=== PATIENT | female | born 1965 | race Caucasian/White ===

== ENCOUNTER 2017-05-18 05:49 | Observation (INO) | payer OTHER ==
[~2017-05-18] VITALS: Ht 160 cm; Wt 115.0 kg
[2017-05-18] VITALS (17 sets, daily range): BP systolic 119–149; BP diastolic 57–96; PULSE 80–118; RESP 17–25; Ht 160 cm; Wt 115.0 kg
[2017-05-18] MEDS ORDERED: CEFAZOLIN 2 GM/50 ML (PMX) 50 ML IVPB SCH (06:00)
[2017-05-18] MEDS ORDERED: FENTAnyl 50 MCG/ML VIAL IV PRN ×2 (07:00)
[2017-05-18] MEDS ORDERED: HYDROmorphONE (0.2 MG/ML) 10ML SYG IV PRN ×3 (07:00)
[2017-05-18] MEDS ORDERED: morphine (1 MG/ML) 10ML SYRINGE IV PRN ×3 (07:00)
[2017-05-18] MEDS ORDERED: DIPHENHYDRAMINE 50 MG INJ IV PRN (07:00)
[2017-05-18] MEDS ORDERED: EPHEDrine SULFATE 50 MG/5 ML SYG IV PRN (07:00)
[2017-05-18] MEDS ORDERED: MIDAZOLAM 1 MG/ML 2 ML INJ IV PRN (07:00)
[2017-05-18] MEDS ORDERED: ATROPINE 1 MG/10 ML SYRINGE IV PRN (07:00)
[2017-05-18] MEDS ORDERED: OXYCODONE/ACETAMINOPHEN (5/325) TAB PO PRN ×2 (07:00)
[2017-05-18] MEDS ORDERED: MEPERIDINE 25 MG INJ IV PRN (07:00)
[2017-05-18] MEDS ORDERED: hydrALAzine 20 MG INJ IV PRN ×2 (07:00→15:00)
[2017-05-18] MEDS ORDERED: LABETALOL HCL 20MG INJ IV PRN (07:00)
[2017-05-18] MEDS ORDERED: ONDANSETRON 4 MG INJ IV PRN ×2 (07:00→13:00)
[2017-05-18] MEDS ORDERED: TIOT18CA INHALATION (09:23)
[2017-05-18] MEDS ORDERED: LOSA100T7 PO ×2 (09:23→09:25)
[2017-05-18] MEDS ORDERED: AMLO5TAB4 PO ×2 (09:25→09:26)
[2017-05-18] MEDS ORDERED: INSU100C SQ (09:26)
[2017-05-18] MEDS ORDERED: IBUP-1542 PO (09:26)
[2017-05-18] MEDS ORDERED: INSU100I33 SC (09:27)
[2017-05-18] MEDS ORDERED: ATOR10TA65 PO (09:27)
[2017-05-18] MEDS ORDERED: CETI10TA71 PO (09:28)
[2017-05-18] MEDS ORDERED: ONDA-43 PO (09:28)
[2017-05-18] MEDS ORDERED: LORA10TA3 PO (09:29)
[2017-05-18] MEDS ORDERED: MTF1000T PO (09:29)
[2017-05-18] MEDS ORDERED: GLYCOPYRROLATE 0.4 MG INJ ONE (09:52)
[2017-05-18] MEDS ORDERED: PROPOFOL 20 ML ONE (09:52)
[2017-05-18] MEDS ORDERED: MIDAZOLAM 1 MG/ML 2 ML INJ ONE (09:52)
[2017-05-18] MEDS ORDERED: ROCURONIUM 50 MG INJ ONE (09:52)
[2017-05-18] MEDS ORDERED: NEOSTIGMINE 3 MG/3 ML SYRINGE ONE (09:52)
[2017-05-18] MEDS ORDERED: LIDOCAINE 2% (SDV) 5 ML INJ ONE (09:52)
[2017-05-18] MEDS ORDERED: DEXAMETHASONE 4 MG/ML 1 ML INJ ONE (09:53)
[2017-05-18] MEDS ORDERED: FENTAnyl 50 MCG/ML VIAL ONE (09:53)
[2017-05-18] MEDS ORDERED: ONDANSETRON 4 MG INJ ONE (09:53)
[2017-05-18 10:00] LABS: BASOPHIL # 0.1 10^3/ul (0.0-0.1); BASOPHILS % 0.5 % (0.0-2.0); EOSINOPHILS # 0.1 10^3/ul (0.0-0.5); EOSINOPHILS % 0.5 % (0.0-7.0); HEMATOCRIT 46.6 % (37.0-47.0); HEMOGLOBIN 15.4 g/dl (12.0-16.0); LYMPHOCYTES # 3.2 10^3/ul (0.8-2.9); LYMPHOCYTES % 28.9 % (15.0-51.0); MEAN CORPUSCULAR HEMOGLOBIN 28.7 pg (29.0-33.0); MEAN CORPUSCULAR VOLUME 86.9 fl (82.0-101.0); MEAN PLATELET VOLUME 10.7 fl (7.4-10.4); MONOCYTE # 0.4 10^3/ul (0.3-0.9); NEUTROPHIL # 7.3 10^3/ul (1.6-7.5); NEUTROPHILS % 65.8 % (39.0-77.0); PLATELET COUNT 272 10^3/UL (140-415); RED BLOOD COUNT 5.36 10^6/ul (4.20-5.40); RED CELL DISTRIBUTION WIDTH 13.2 % (11.5-14.5)
[2017-05-18] MEDS ORDERED: METHYLENE BLUE 1% 10 ML INJ ONE (10:33)
[2017-05-18] MEDS ORDERED: SUGAMMADEX SODIUM 200 MG/2 ML VIAL IV ONE (10:40)
[2017-05-18] MEDS ORDERED: SUCCINYLCHOLINE CHLORIDE 100 MG/5 ML SYG IV ONE (10:40)
[2017-05-18] MEDS ORDERED: ISOSULFAN BLUE 1% 5 ML INJ SC ONE (10:56)
[2017-05-18] MEDS ORDERED: EPHEDrine SULFATE 50 MG/5 ML SYG ONE (11:32)
[2017-05-18] MEDS ORDERED: D5W-0.45 NACL + KCL 20 MEQ 1,000 ML IV SCH (12:49)
--- NOTE | 2017-05-18 12:49 | SIPON ---
Date/Time of Note Date/Time of Note DATE: 05/18/17 TIME: 12:47 Operative Report Preoperative Diagnosis Invasive cancer left breast Postoperative Diagnosis Same Operation/Procedure Performed Left needle directed partial mastectomy with axillary dissection utilizing sentinel lymph node technique Surgeon see signature line licensed occupational therapy assistant None Anesthesia: general Estimated blood loss: 10 - 50 ml's Transfusion Required none Specimen Left breast specimen and sentinel lymph node with additional axillary tissue Grafts/Implants none Complications none JONAS BROOKS MD May 18, 2017 12:49
[2017-05-18] MEDS ORDERED: morphine 2 MG INJ IV PRN (13:00)
[2017-05-18] MEDS ORDERED: ACETAMINOPHEN 1000MG/100ML IV 100 ML IVPB PRN (13:00)
[2017-05-18] MEDS ORDERED: LABETALOL HCL 20MG INJ ONE (13:02)
[2017-05-18] MEDS ORDERED: GLUCAGON 1 MG INJ IM PRN (15:00)
[2017-05-18] MEDS ORDERED: DEXTROSE 50% 50 ML SYRINGE IV PRN ×2 (15:00)
[2017-05-18] MEDS ORDERED: GLUCOSE GEL 15 GRAM TUBE PO PRN ×2 (15:00)
[2017-05-18] MEDS ORDERED: GLUCOSE GEL 15 GRAM TUBE BUCCAL PRN (15:00)
[2017-05-18] MEDS: SOD CHLORIDE 0.9% 1,000 ML IV SCH ×2 (16:40→19:20)
[2017-05-18] MEDS: metFORMIN 500 MG TAB PO SCH (18:10)
[2017-05-18] MEDS: INSULIN ASPART [NOVOLOG] 3 ML PEN SC SCH ×2 (18:22→21:01)
[2017-05-18] MEDS ORDERED: INSULIN GLARGINE [LANtus] 3 ML PEN SC SCH (21:00)
[2017-05-18] MEDS ORDERED: ATORVASTATIN 10 MG TAB PO SCH (21:00)
[2017-05-19 02:00] VITALS: BP 119/60; RESP 18
[2017-05-19] MEDS ORDERED: ACCU-CHEK XX SCH ×2 (02:00)
[2017-05-19 05:05] VITALS: BP 133/65; PULSE 90; RESP 19
[2017-05-19 05:37] LABS: BASOPHILS % 0.1 % (0.0-2.0); HEMOGLOBIN 14.1 g/dl (12.0-16.0); LYMPHOCYTES % 11.2 % (15.0-51.0); MEAN CORPUSCULAR HEMOGLOBIN 29.3 pg (29.0-33.0); MEAN CORPUSCULAR HGB CONC 32.8 g/dl (32.0-37.0); MEAN CORPUSCULAR VOLUME 89.4 fl (82.0-101.0); MEAN PLATELET VOLUME 11.7 fl (7.4-10.4); MONOCYTE # 0.7 10^3/ul (0.3-0.9); MONOCYTES % 3.8 % (0.0-11.0); NEUTROPHIL # 14.7 10^3/ul (1.6-7.5); NEUTROPHILS % 84.3 % (39.0-77.0); PLATELET COUNT 218 10^3/UL (140-415); RED BLOOD COUNT 4.81 10^6/ul (4.20-5.40); RED CELL DISTRIBUTION WIDTH 13.3 % (11.5-14.5); WHITE BLOOD COUNT 17.4 10^3/ul (4.8-10.8)
[2017-05-19 05:53] LABS: CALCIUM 8.9 mg/dl (8.4-10.2); CREATININE 0.75 mg/dl (0.44-1.00); POTASSIUM 4.4 mmol/L (3.5-5.1)
[2017-05-19 07:52] VITALS: BP 111/57; RESP 20
[2017-05-19] MEDS: metFORMIN 500 MG TAB PO SCH (08:39)
[2017-05-19] MEDS: INSULIN ASPART [NOVOLOG] 3 ML PEN SC SCH ×2 (08:49→12:42)
--- NOTE | 2017-05-19 08:54 | OPR ---
DATE OF OPERATION: 05/18/2017 PREOPERATIVE DIAGNOSIS: Invasive cancer, left breast. POSTOPERATIVE DIAGNOSIS: Invasive cancer, left breast. OPERATION PERFORMED: Needle-directed left partial mastectomy with axillary dissection utilizing sen tinel lymph node technique. ANESTHESIA: General. ANESTHESIOLOGIST: MD Blanche. SURGEON: Dr. Siegel. SURGICAL SUPERVISOR: None. INDICATIONS FOR PROCEDURE: The patient is a 51-year-old female who underwent screening mammography and was found to have a suspicious lesion in her left breast. Subsequent biopsy confirmed invasive cancer. She was counseled as to the benefit of breast conservation surgery with needle-directed par tial mastectomy and axillary dissection utilizing sentinel lymph node technique. She consented and was scheduled for surgery. DESCRIPTION OF PROCEDURE: On the morning of surgery, the patient was brought to [facility] where she underwent localization of the lesion performed by attending radi ologist, . Subsequently, she was brought to the operating theater, placed under general ane sthesia. The left breast and axillary region were prepped and draped in usual sterile fashion. Rupert roximately 4 to 5 mL of 1% Lymphazurin blue dye was then injected blanka-tumorally. The breast was ge ntly massaged for approximately 12 minutes. At this point, a 3 to 4 cm incision was made in the lef t axillary hairline. Subcutaneous tissue was dissected with cautery down through the clavipectoral fascia. The fascia was incised. A relatively large lymph node with associated dye-stained lymphati c was identified. This lymph node and several other lymph nodes in the general area were resected a nd sent for permanent pathologic analysis. The wound was then irrigated. Minimal bleeding was cont rolled with cautery. A #10 Irish Tylor-Espinoza drain was then brought through the left mid axillar y line, cut to size and laid within the axilla. It was secured in place with 2-0 nylon suture in th e standard fashion. Incision was then closed with a 4-0 Vicryl suture in subcuticular fashion. Attention was then directed to performing partial mastectomy. A curvilinear incision was then made in the region of the previously placed localization wire which was in the upper outer quadrant. Sub cutaneous tissue was dissected with cautery. The skin edges were elevated with skin hooks and wide circumferential dissection of the tissue associated with the wire took place, taking great care to e nsure adequate margins. The specimen was transected, oriented, and sent for gross pathologic analys is. The wound was irrigated. Minimal bleeding was controlled with cautery. The skin was then reap proximated with 4-0 Vicryl suture in subcuticular fashion and Dermabond was applied to both incision s. The patient tolerated procedure well. Total blood loss was approximately 50 mL. There were no complications, and the patient was transported in stable condition to the recovery room where circum ferential compression dressing was applied. Dictated By: JONAS ROY/JING Conf#: [id number] DID#: [id number]
[2017-05-19] MEDS ORDERED: LORATADINE 10 MG TAB PO SCH (09:00)
[2017-05-19] MEDS ORDERED: LOSARTAN 50 MG TAB PO SCH (09:00)
[2017-05-19] MEDS ORDERED: AMLODIPINE 5 MG TAB PO SCH (09:00)
[2017-05-19] MEDS ORDERED: [UNRECOGNIZED DRUG - REMARK] PO SCH (09:00)
[2017-05-19] MEDS ORDERED: TIOTROPIUM 18 MCG CAPSULE INHA DEV INH SCH (09:00)
--- NOTE | 2017-05-19 12:27 | HP ---
DATE OF ADMISSION: 05/18/2017 HISTORY OF PRESENT ILLNESS: The patient is a 51-year-old female with past medical history significa nt for hypertension, insulin-dependent diabetes mellitus, COPD, depression, arthritis. The patient was diagnosed with invasive cancer of the left breast and was evaluated in surgical consultation by Dr. Siegel. The patient was brought to the hospital today and underwent left needle-directed partial mastectomy with axillary dissection utilizing sentinel lymph node technique. Postoperatively, the patient complains of significant pain and the patient will be admitted for further evaluation and ma nagement. PAST MEDICAL HISTORY: Per HPI. PAST SURGICAL HISTORY: Patient had status post tonsillectomy and ear surgery in patient's childhood . FAMILY HISTORY: Positive for cancer in patient's mother at the age of 60, details not available. SOCIAL HISTORY: Patient lives at home with her . The patient smokes at least 1 pack of ciga rettes per day and smoked for many years. The patient denies any alcohol. Denies any illicit drug use. ALLERGIES: THE PATIENT IS ALLERGIC TO ERYTHROMYCIN ANTIBIOTICS. HOME MEDICATIONS: Includes: 1. Norvasc. 2. Atorvastatin. 3. Ibuprofen. 4. 40 units of subQ at bedtime. 5. Loratadine. 6. Cozaar 7. Metformin. 8. Zofran. 9. Spiriva. 10. Humalog. 11. Lispro 4 units subq b.i.d. 12. Cetirizine. REVIEW OF SYSTEMS: A 12-point review of systems is negative unless mentioned in the HPI. PHYSICAL ASSESSMENT: GENERAL: Well-developed, obese female in no acute distress. VITAL SIGNS: Temperature is 98.2, pulse is 103, blood pressure 137/96, respiratory rate 21, oxygen saturation 92% on 2 liters nasal cannula. HEENT: Head is atraumatic, normocephalic. Pupils equal, round, reactive to light and accommodation . Oral mucosa is pink and moist. NECK: Supple, no cervical lymphadenopathy, no thyromegaly. CHEST: Lungs clear bilaterally. There is no rhonchi, wheezes or rales noted. CARDIOVASCULAR: Normal S1, S2. No murmurs, gallops, clicks, rubs noted. Patient has a chest surgi renée dressing with a dry, clean and intact. ABDOMEN: Protuberant, soft, nondistended, nontender. Bowel sounds present. EXTREMITIES: No edema, clubbing, cyanosis. Pulses equal bilaterally 2+. SKIN: There is no rash, petechiae noted. NEUROLOGIC: Patient is awake, alert and oriented x4. No focal deficits noted. ASSESSMENT AND PLAN: 1. Invasive cancer of the left breast status post left needle-directed partial mastectomy with axil lachelle dissection. Continue Tylenol and morphine p.r.n. for pain, Zofran p.r.n. for nausea. 2. Continue postoperative antibiotics. 3. Hypertension. We will continue patient's home antihypertensive medication, hydralazine p.r.n. f or systolic blood pressure above 170. 4. Insulin-dependent diabetes mellitus. We will continue patient's home regimen and will continue to monitor blood sugar q.a.c. and at bedtime with NovoLog sliding scale coverage. 5. Tobacco dependence. Tobacco cessation strongly advised. 6. Possible chronic obstructive pulmonary disease. Will continue breathing treatment p.r.n. for sh ortness of breath. 7. Continue Spiriva. RECOMMENDATIONS: We will continue sequential compression device for deep venous thrombosis prophyla xis. Further recommendations based on clinical course. Plan of care was discussed with Dr. Wolfgang esposito Dictated By: MOUNIKA GRANT ASSURANCE AUDITOR for ROSAURA MCPHERSON MD SR/NTS Conf#: [id number] DID#: [id number]
[2017-05-19 14:15] LABS: BASOPHILS % 0.2 % (0.0-2.0); EOSINOPHILS % 0.2 % (0.0-7.0); HEMATOCRIT 43.6 % (37.0-47.0); HEMOGLOBIN 14.5 g/dl (12.0-16.0); LYMPHOCYTES # 3.6 10^3/ul (0.8-2.9); LYMPHOCYTES % 22.7 % (15.0-51.0); MEAN CORPUSCULAR HEMOGLOBIN 29.8 pg (29.0-33.0); MEAN CORPUSCULAR HGB CONC 33.3 g/dl (32.0-37.0); MEAN CORPUSCULAR VOLUME 89.7 fl (82.0-101.0); MEAN PLATELET VOLUME 11.2 fl (7.4-10.4); MONOCYTE # 0.7 10^3/ul (0.3-0.9); MONOCYTES % 4.5 % (0.0-11.0); NEUTROPHIL # 11.4 10^3/ul (1.6-7.5); PLATELET COUNT 205 10^3/UL (140-415); RED BLOOD COUNT 4.86 10^6/ul (4.20-5.40); RED CELL DISTRIBUTION WIDTH 13.2 % (11.5-14.5); WHITE BLOOD COUNT 15.8 10^3/ul (4.8-10.8)
[2017-05-19 14:18] LABS: POSITIVE DIFF @See below
--- NOTE | 2017-05-19 14:33 | PDOCDIS ---
Discharge Instructions CONDITION Patient Condition: Stable HOME CARE INSTRUCTIONS: Diet Instructions: Reduced Calorie ACTIVITY: Activity Restrictions: Slowly Increase Activity Rest between Activity Avoid heavy lifting Avoid Heavy Housework Bathing Restrictions: Tub Bath FOLLOW UP/APPOINTMENTS Follow-up Plan FU with PMD X 1 week FU wi surgery as recommended Call 911 or go to the nearest hospital if symptoms get worse- patient verbalized understanding dc indurations Plan of care dw dr Phelan/staff. MINE ROTHMAN May 19, 2017 14:33
[2017-05-19] MEDS ORDERED: ACET1TAB40 PO (14:38)
[2017-05-19] MEDS ORDERED: FAMO20TA18 PO (14:38)
[2017-05-19] MEDS ORDERED: DOCU-144 PO (14:38)
--- NOTE | 2017-05-19 14:41 | DS ---
Date/Time of Note Date/Time of Note DATE: 05/19/17 TIME: 14:39 Discharge Summary Admission/Discharge Info Admit Date/Time May 18, 2017 at 12:52 Discharge Date/Time Discharge Diagnosis 1. Invasive cancer of the left breast 2. Status post left needle-directed partial mastectomy with axillary dissection. 3. Hypertension. 4. Insulin-dependent diabetes mellitus. 5. Tobacco dependence. Tobacco cessation strongly advised. 6. Possible chronic obstructive pulmonary disease. Patient Condition: Stable Hospital Course This is a 51-year-old female with past medical history of hypertension, insulin-dependent diabetes mellitus, COPD, depression, arthritis. The patient was diagnosed with invasive cancer of the left breast and underwent left needle- directed partial mastectomy with axillary dissection utilizing sentinel lymph node technique. Postoperatively, the patient experienced moderate pain and was admitted for further evaluation and management under Dr Phelan. Post op pain was controlled, pt was stable, cleared by surgery to discharge home. Dw Dr Phelan Home Meds Active Scripts Famotidine* (Famotidine*) 20 Mg Tablet, 20 MG PO DAILY, #20 TAB Prov:MINE ROTHMAN 05/19/17 Docusate Sodium* (Colace*) 100 Mg Capsule, 100 MG PO DAILY, #20 CAP Prov:MINE ROTHMAN 05/19/17 Acetaminophen with Codeine (Acetaminophen-Cod #3 Tablet) 1 Each Tablet, 1 TAB PO Q6H, #14 TAB Prov:MINE ROTHMAN 05/19/17 Reported Medications Metformin* (Glucophage*) 1,000 Mg Tablet, 1000 MG PO BID, #60 TAB 05/18/17 Loratadine* (Loratadine*) 10 Mg Tablet, 10 MG PO DAILY, #30 TAB 05/18/17 Ondansetron Hcl* (Zofran*) 4 Mg Tab, 4 MG PO Q6H Y for NAUSEA AND OR VOMITING, TAB 05/18/17 Cetirizine Hcl (Allergy) 10 Mg Tablet, 10 MG PO DAILY, TAB 05/18/17 Atorvastatin Calcium (Atorvastatin Calcium) 10 Mg Tablet, 10 MG PO QHS, #30 TAB 05/18/17 Insulin Glargine,Hum.rec.anlog (Basaglar Kwikpen U-100) 100 Unit/1 Ml Insuln.pen , 40 UNIT SC QHS 05/18/17 Amlodipine Besylate* (Norvasc*) 5 Mg Tablet, 5 MG PO DAILY, TAB 05/18/17 Ibuprofen* (Ibuprofen*) 600 Mg Tablet, 600 MG PO Q8 Y for PAIN, TAB 05/18/17 Insulin Lispro (Humalog) 100 Unit/1 Ml Cartridge, 4 UNIT SQ BID 05/18/17 Losartan Potassium* (Losartan Potassium*) 100 Mg Tablet, 100 MG PO DAILY, TAB 05/18/17 Tiotropium [place]* (Spiriva*) 18 Mcg Cap.w.dev, 1 CAP INHALATION DAILY, #30 CAP 05/18/17 Follow-up Plan FU with PMD X 1 week FU [facility] surgery as recommended Call 911 or go to the nearest hospital if symptoms get worse- patient verbalized understanding dc indurations Plan of care dw dr Phelan/staff. Primary Care Provider Okd per dr Ramsay to go home. Time spent on discharge: < 30 minutes Pending Labs Laboratory Tests Test 05/18/17 17:50 05/18/17 20:58 05/18/17 22:02 05/19/17 02:41 Bedside Glucose 227mg/dL (70-220) 218mg/dL (70-220) 205mg/dL (70-220) 131mg/dL (70-220) Test 05/19/17 04:23 05/19/17 08:35 05/19/17 12:37 05/19/17 14:06 White Blood Count 17.410^3/ul (4.8-10.8) 15.810^3/ul (4.8-10.8) Red Blood Count 4.8110^6/ul (4.20-5.40) 4.8610^6/ul (4.20-5.40) Hemoglobin 14.1g/dl (12.0-16.0) 14.5g/dl (12.0-16.0) Hematocrit 43.0% (37.0-47.0) 43.6% (37.0-47.0) Mean Corpuscular Volume 89.4fl (82.0-101.0) 89.7fl (82.0-101.0) Mean Corpuscular Hemoglobin 29.3pg (29.0-33.0) 29.8pg (29.0-33.0) Mean Corpuscular Hemoglobin Concent 32.8g/dl (32.0-37.0) 33.3g/dl (32.0-37.0) Red Cell Distribution Width 13.3% (11.5-14.5) 13.2% (11.5-14.5) Platelet Count 43515^3/UL (140-415) 52551^3/UL (140-415) Mean Platelet Volume 11.7fl (7.4-10.4) 11.2fl (7.4-10.4) Neutrophils % 84.3% (39.0-77.0) 72.0% (39.0-77.0) Lymphocytes % 11.2% (15.0-51.0) 22.7% (15.0-51.0) Monocytes % 3.8% (0.0-11.0) 4.5% (0.0-11.0) Eosinophils % 0.0% (0.0-7.0) 0.2% (0.0-7.0) Basophils % 0.1% (0.0-2.0) 0.2% (0.0-2.0) Nucleated Red Blood Cells % 0.0/100WBC (0.0-0.0) 0.0/100WBC (0.0-0.0) Neutrophils # 14.710^3/ul (1.6-7.5) 11.410^3/ul (1.6-7.5) Lymphocytes # 2.010^3/ul (0.8-2.9) 3.610^3/ul (0.8-2.9) Monocytes # 0.710^3/ul (0.3-0.9) 0.710^3/ul (0.3-0.9) Eosinophils # 0.010^3/ul (0.0-0.5) 0.010^3/ul (0.0-0.5) Basophils # 0.010^3/ul (0.0-0.1) 0.010^3/ul (0.0-0.1) Nucleated Red Blood Cells # 0.010^3/ul (0.0-0.0) 0.010^3/ul (0.0-0.0) Sodium Level 141mmol/L (135-144) Potassium Level 4.4mmol/L (3.5-5.1) Chloride Level 105mmol/L (97-110) Carbon Dioxide Level 25mmol/L (21-31) Anion Gap 15 (8-16) Blood Urea Nitrogen 21mg/dl (7-20) Creatinine 0.75mg/dl (0.44-1.00) Glucose Level 137mg/dl (70-220) Hemoglobin A1c 6.5% (0-5.9) Calcium Level 8.9mg/dl (8.4-10.2) Bedside Glucose 148mg/dL (70-220) 112mg/dL (70-220) MINE ROTHMAN May 19, 2017 14:41
--- NOTE | 2017-05-21 06:45 | PN ---
DATE: 05/19/2017 Patient has leukocytosis and status post left partial mastectomy with axillary dissection. SUBJECTIVE: No complaint. Patient has been coughing to some extent, but she says that is usual for her because she is a chronic smoker. No fever. No nausea, no vomiting. Moves her left arm easily. OBJECTIVE: GENERAL: Awake, alert, oriented x3. VITAL SIGNS: Temperature 98.2, heart rate 90, respirations 20, blood pressure 111/67, saturation 94% on room air. LABORATORY DATA: WBC was 17,400 today morning, dropped to 15,800. Differential was 84% neutrophils today, and now is 72%. Hemoglobin 14.5, hematocrit 43.6. Chemistry is normal. Blood sugar 148, and also 112. Hemoglobin A1c 6.5. Two Tylor-Espinoza drains in place. One has drained last night 5 mL, the other one 10 mL of serosanguineous. Dressing is intact. ASSESSMENT AND PLAN: The patient is a 51-year-old chronic smoker with left invasive cancer, needle-directed left partial mastectomy and axillary dissection was done yesterday. The patient is fine. No fever. Leukocyte count is elevated up. The patient is currently a smoker. Otherwise, there is no problem, wound is clean, dressing is intact. Tylor-Espinoza is serosanguineous. Patient is discharged today to go home. Followup by Dr. Brooks. Patient to call Dr. Brooks' office on Sunday, make an appointment for followup. Dictated By: KANDIS GARCÍA MD PS/NTS Conf#: [id number] DID#: [id number] CC: JONAS BROOKS MD;*EndCC* MTDD
== END 2017-05-19 15:05 | disposition home or self-care (01) ==
LOC: SDS 05:49 → MS1 12:52 → SDS 12:52 → MS1 14:07
PROVIDERS: ADMIT Surgery Surgical Oncology; ATTEND Surgery Surgical Oncology
DX: C50.412 Malignant neoplasm of upper-outer quadrant of left female breast (principal); I10 Essential (primary) hypertension; E11.9 Type 2 diabetes mellitus without complications; Z79.4 Long term (current) use of insulin; E66.01 Morbid (severe) obesity due to excess calories; Z68.41 Body mass index [BMI] 40.0-44.9, adult; M19.90 Unspecified osteoarthritis, unspecified site; F32.9 Major depressive disorder, single episode, unspecified; F17.210 Nicotine dependence, cigarettes, uncomplicated; J45.909 Unspecified asthma, uncomplicated
CPT/HCPCS: 19301; 38525; 38900; 80048; 82962; 83036; 85025; 88307; J1100; J1815; J2250; J2405; J3010; J3480; J7030; Z7500; Z7512; Z7610; G0378; J2270; J2710; Q9968

== ENCOUNTER 2017-06-29 07:21 | Day surgery (SDC) | payer OTHER ==
[2017-06-28 14:25] VITALS: BMI 46.9
[2017-06-29] VITALS (10 sets, daily range): BP systolic 106–138; BP diastolic 50–106; PULSE 104–122; RESP 18–22; Ht 160 cm; Wt 117.4 kg
[~2017-06-29] VITALS: Ht 160 cm; Wt 117.4 kg
[~2017-06-29 07:21] MED LIST: ACET1TAB40 PO; AMLO5TAB4 PO; ATOR10TA65 PO; CETI10TA71 PO; DOCU-144 PO; FAMO20TA18 PO; IBUP-1542 PO; INSU100C SQ; INSU100I33 SC; LORA10TA3 PO; LOSA100T7 PO; MTF1000T PO; ONDA-43 PO; TIOT18CA INHALATION
[2017-06-29 09:13] LABS: BASOPHIL # 0.1 10^3/ul (0.0-0.1); BASOPHILS % 0.6 % (0.0-2.0); EOSINOPHILS # 0.1 10^3/ul (0.0-0.5); EOSINOPHILS % 0.6 % (0.0-7.0); HEMATOCRIT 43.3 % (37.0-47.0); HEMOGLOBIN 14.4 g/dl (12.0-16.0); LYMPHOCYTES # 2.4 10^3/ul (0.8-2.9); LYMPHOCYTES % 29.5 % (15.0-51.0); MEAN CORPUSCULAR HEMOGLOBIN 29.1 pg (29.0-33.0); MEAN CORPUSCULAR HGB CONC 33.3 g/dl (32.0-37.0); MEAN CORPUSCULAR VOLUME 87.7 fl (82.0-101.0); MEAN PLATELET VOLUME 11.4 fl (7.4-10.4); MONOCYTE # 0.4 10^3/ul (0.3-0.9); MONOCYTES % 5.2 % (0.0-11.0); NEUTROPHIL # 5.3 10^3/ul (1.6-7.5); NEUTROPHILS % 63.9 % (39.0-77.0); PLATELET COUNT 208 10^3/UL (140-415); RED BLOOD COUNT 4.94 10^6/ul (4.20-5.40); RED CELL DISTRIBUTION WIDTH 12.5 % (11.5-14.5); WHITE BLOOD COUNT 8.2 10^3/ul (4.8-10.8)
[2017-06-29] MEDS ORDERED: PROPOFOL 20 ML ONE (09:18)
[2017-06-29] MEDS ORDERED: METOCLOPRAMIDE 10 MG INJ ONE (09:18)
[2017-06-29] MEDS ORDERED: MIDAZOLAM 1 MG/ML 2 ML INJ ONE (09:18)
[2017-06-29] MEDS ORDERED: LIDOCAINE 2% (SDV) 5 ML INJ ONE (09:18)
[2017-06-29] MEDS ORDERED: FENTAnyl 50 MCG/ML VIAL ONE (09:18)
[2017-06-29] MEDS ORDERED: ONDANSETRON 4 MG INJ ONE (09:18)
[2017-06-29] MEDS ORDERED: GLYCOPYRROLATE 0.4 MG INJ ONE (09:18)
[2017-06-29] MEDS ORDERED: ROCURONIUM 50 MG INJ ONE (09:18)
[2017-06-29] MEDS ORDERED: FAMOTIDINE 20 MG INJ ONE (09:19)
[2017-06-29] MEDS ORDERED: DEXAMETHASONE 4 MG/ML 1 ML INJ ONE (09:19)
--- NOTE | 2017-06-29 09:26 | RADRPT ---
PROCEDURE: XR Chest. CLINICAL INDICATION: Preoperative TECHNIQUE: Single frontal view of the chest was obtained COMPARISON: None FINDINGS: The heart and mediastinum are within normal limits. There is a 6 mm right upper lobe calcified granuloma. There is no focal infiltrate. There is no pleural effusion or pneumothorax. RPTAT: AA IMPRESSION: No acute disease. 6 mm right upper lobe calcified granuloma. .Gee Medina MD, MD Date Time Electronically viewed and signed by .Gee Medina MD, MD on 06/29/2017 09:26 .S/
[2017-06-29 09:38] LABS: CALCIUM 9.3 mg/dl (8.4-10.2); CREATININE 0.83 mg/dl (0.44-1.00)
[2017-06-29 09:54] LABS: INR 0.95; PROTIME 12.7 Sec (12.2-14.2)
[2017-06-29 09:55] LABS: PARTIAL THROMBOPLASTIN TIME 27.9 Sec (25.0-35.0)
[2017-06-29] MEDS ORDERED: CEFAZOLIN 1 GM INJ ONE (09:59)
[2017-06-29] MEDS ORDERED: EPHEDrine SULFATE 50 MG/5 ML SYG ONE (09:59)
[2017-06-29] MEDS ORDERED: PHENYLephrine (100 MCG/ML) 5ML SYG ONE (10:00)
[2017-06-29] MEDS ORDERED: METOCLOPRAMIDE 10 MG INJ IV PRN (10:00)
[2017-06-29] MEDS ORDERED: ONDANSETRON 4 MG INJ IV PRN (10:00)
[2017-06-29] MEDS ORDERED: DIPHENHYDRAMINE 50 MG INJ IV PRN (10:00)
[2017-06-29] MEDS ORDERED: OXYCODONE/ACETAMINOPHEN (5/325) TAB PO PRN ×2 (10:00)
[2017-06-29] MEDS ORDERED: LABETALOL HCL 20MG INJ IV PRN (10:00)
[2017-06-29] MEDS ORDERED: MEPERIDINE 25 MG INJ IV PRN (10:00)
[2017-06-29] MEDS ORDERED: ALBUTEROL 0.083% (NEB) 2.5 MG/3 ML AMP HHN PRN (10:00)
[2017-06-29] MEDS ORDERED: MIDAZOLAM 1 MG/ML 2 ML INJ IV PRN (10:00)
[2017-06-29] MEDS ORDERED: HYDROmorphONE (0.2 MG/ML) 10ML SYG IV PRN ×3 (10:00)
[2017-06-29] MEDS ORDERED: SUGAMMADEX SODIUM 200 MG/2 ML VIAL IV ONE (10:02)
--- NOTE | 2017-06-29 10:40 | SIPON ---
Date/Time of Note Date/Time of Note DATE: 06/29/17 TIME: 10:39 Operative Report Preoperative Diagnosis Left breast cancer need for reexcision partial mastectomy Postoperative Diagnosis Same Operation/Procedure Performed Left reexcision partial mastectomy Surgeon see signature line physical therapy assistant instructor Dr Villa Anesthesia: general Estimated blood loss: 10 - 50 ml's Transfusion Required none Specimen Left reexcision partial mastectomy specimen Grafts/Implants none Complications none JONAS BROOKS MD Jun 29, 2017 10:40
[2017-06-29] MEDS ORDERED: HYDROCODONE/APAP (7.5/325) TAB PO PRN (11:00)
--- NOTE | 2017-06-29 11:26 | OPR ---
DATE OF OPERATION: 06/29/2017 PREOPERATIVE DIAGNOSIS: Left breast cancer, need for reexcision partial mastectomy. POSTOPERATIVE DIAGNOSIS: Left breast cancer, need for reexcision partial mastectomy. OPERATION PERFORMED: Left reexcision partial mastectomy. ANESTHESIA: General. ANESTHESIOLOGIST: Nurse repair armature winder helper, Dr. Jax Childs SURGEON: Bijan Siegel MD CAR RENTAL SALES ASSISTANT: Dr. Villa. INDICATIONS FOR PROCEDURE: The patient is a 51-year-old female who I previously treated for a left breast cancer with partial mastectomy and axillary lymph node sampling. Her final pathology reveale d inadequate superior medial and inferior margin. She was counseled as to the need for reexcision p artial mastectomy. She consented and was scheduled for surgery. DESCRIPTION OF PROCEDURE: The patient was brought to the operating theater, placed under general an esthesia. The left breast was prepped and draped in usual sterile fashion. Previous surgical incis ional scar was reincised with 15 blade scalpel and subcutaneous tissue was dissected with cautery. The seroma cavity was entered. Several milliliters of straw-colored seroma fluid were evacuated. S kin edges were then elevated with skin hooks and 180 degree resection of the previous biopsy cavity took place, starting with the superior portion extending into the medial portion and then to the inf erior portion. The specimen was then elevated, transected, oriented, and sent for permanent patholo gic analysis. Wound was irrigated. Residual bleeding was controlled with cautery. Due to very lar ge size of the defect, Dr. Siegel made the decision to place a drain within the wound cavity. A #10 flat Tylor-Espinoza drain was brought through the left mid axillary line and placed into the wound ca vity after first being cut to size and secured in place with 2-0 nylon suture in standard fashion. The skin incision was then closed with 5-0 PDS sutures. Benzoin and Steri-Strips were then applied. Patient tolerated procedure well. ESTIMATED BLOOD LOSS: 20 mL. COMPLICATIONS: There were no complications. DISPOSITION: The patient was transported in stable condition to the recovery room. Dictated By: BIJAN ROY/JING Conf#: [id number] DID#: [id number]
--- NOTE | 2017-06-29 13:21 | RADRPT ---
Vent Rate: 95 bpm RR Interval: 0 msec [place] Interval: 138 msec QRS Duration: 82 msec QT Interval: 358 msec QTC Interval: 449 msec P-R-T Mcdermitt: 70 - 43 - 69 degrees Normal sinus rhythm Normal ECG Electronically Signed By: Richard [place] [id number]
== END 2017-06-29 13:34 | disposition home or self-care (01) ==
LOC: SDS 07:21
PROVIDERS: ATTEND Surgery Surgical Oncology
DX: C50.912 Malignant neoplasm of unspecified site of left female breast (principal); I10 Essential (primary) hypertension; E78.5 Hyperlipidemia, unspecified; E66.01 Morbid (severe) obesity due to excess calories; E11.9 Type 2 diabetes mellitus without complications
CPT/HCPCS: 19301; 71010; 80048; 82962; 85025; 85610; 85730; 88307; 93005; J0690; J1100; J2250; J2370; J2405; J2765; J3010; Z7512; Z7610